=== PATIENT | male | born 1985 | race Caucasian/White ===

== ENCOUNTER 2025-04-27 17:34 | Emergency (ER) | payer BC, SELFPAY ==
--- OUTSIDE RECORDS SUMMARY | 2025-04-27 17:36 | XMS_ITS | Encounter Summary ---
Author Organization [facility] Address [address] [place] [address]. [place] [address] Care Team Providers Care Furrier Apprentice Name Role Phone Jamari Lamb MD Primary Care Provider [phone] Michelet Lozano MD Unavailable [phone] Javed Bernal MD Unavailable [phone] Salazar Cisneros DO Unavailable [facility] Purvi Ramos RN Unavailable [phone] Jamari Lamb MD Unavailable Jamari Lamb MD Unavailable Jamari Lamb MD Unavailable Jamari Lamb MD Unavailable Reason for Visit * Reason Onset Date Comments Patient Request for Note/Letter 01/10/2010 Encounter Details Date Type Department Care Team (Late st Contact Info) Description 01/10/2010 [facility] [place] [address] [phone] Jamari Lamb MD [address] [place] [address] Patient Request for Note/Letter Social History Tobacco Use Types Packs/Day Years Used Date Smoking Tobacco: Never Alcohol Use Standard Drinks/Week Comments Not Asked 0 (1 standard drink = 0.6 oz pur e alcohol) Sex and Gender Information Value Date Recorded Sex Assigned at Male 09/16/2020 8:14 AM CDT Legal Sex Male 3:34 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 Gender Identity Male 09/16/2020 8:14 AM CDT Sexual Orientation Straight 09/16/2020 8: 14 AM CDT documented as of this encounter Plan of Treatment Not on file documented as of this encounter Visit Diagnoses Not on filedocumented in this encounter Care Teams Furrier Apprentice Relationship Specialty [place] [address] [place] [address] PCP - General Family Practice 08/14/10 [place] [address] [place] [address] PCP - Assigned PCP 07/12/11 07/26/18 Michelet Lozano MD [address] [address] Urology 02/24/16 Javed Bernal MD [address] [address] Urology 04/27/16 Salazar Cisneros DO [address] [address] Urology 04/27/16 06/15/17 Purvi Nur, SID Clinic Process Eng Urology 04/27/1609/06 [place] [address] [place] [address] Referring Physician Family Practice 04/27/16 [place] [address] [place] [address] Assigned PCP 02/25/12 08/06/18 [place] [address] [place] [address] Assigned PCP 03/19/19 12/13/23 documented as of this encounter
--- OUTSIDE RECORDS SUMMARY | 2025-04-27 17:36 | XMS_ITS | Encounter Summary ---
Author Organization [facility] Address [address] [place] [address]. [place] [address] Care Team Providers Care Web Press Operator Assistant Name Role Phone Jamari Lamb MD Primary Care Provider Michelet Lozano MD Unavailable [phone] Javed Bernal MD Unavailable [phone] Purvi Nur RN Unavailable Jamari Lamb MD Unavailable Jamari Lamb MD Unavailable Reason for Visit * Reason Comments Medication Refill Encounter Details Date Type Department Care Team (Late st Contact Info) Description 09/04/[address] [address] Jamari Lamb MD [address] [place] [address] Medication Refill Social History Tobacco Use Types Packs/Day Years Used Date Smoking Tobacco: Never Smokeless Tobacco: Never Alcohol Use Standard Drinks/Week Comments Yes 0 (1 standard drink = 0.6 oz pur e alcohol) socially PHQ-2 Answer Date Recorded PHQ-2 Score 4 03/13/2019 Sex and Gender Information Value Date Recorded Sex Assigned at Male 09/16/2020 8:14 AM CDT 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 Rachel Riley MA * Telephone Encounter - Shantal Gr MA - 09/11/2019 9:18 AM CDT Left message for patient to call clinic back regarding Dr. Lamb's message. Shantal Gr CMA * Telephone Encounter - Jamari Lamb MD - 09/11/2019 6:49 AM CDT Video visit please. Jamari Lamb MD [facility] [phone] * Telephone Encounter - Aline Sepulveda RN - 09/04/2019 3:56 PM CDT Routing refill request to provider to review approval because: SEE LAST VISIT, NO FOLLOW UP DONE, ADVISE TYPE OF F/U APPOINTMENT NEEDED, ROUTE FOR PROCESSING Aline Sepulveda RN, BSN Message handled by Nurse Triage. documented in this encounter Plan of Treatment Not on file documented as of this encounter Visit Diagnoses Diagnosis Current moderate episode of major depressive disorder without prior episode (H) documented in this encounter Additional Health Concerns Assessment Noted Time PHQ-9 Depression Total Score: 10 019 7:03 AM CDT documented as of this encounter Care Teams Web Press Operator Assistant Relationship Specialty [place] [address] [place] [address] PCP - General Family Practice 08/14/10 Michelet Lozano MD [address] [facility] [address] [place] [address] Urology 02/24/16 Javed Bernal MD 420 [facility] [address] [place], [place] [address] Urology 04/27/16 Purvi Nur, RN Clinic Fire Pot Operator Urology 04/27/1609/06 [place] [address] [place] [address] Referring Physician Family Practice 04/27/16 [place] [address] [place] [address] Assigned PCP 03/19/19 12/13/23 documented as of this encounter
--- OUTSIDE RECORDS SUMMARY | 2025-04-27 17:36 | XMS_ITS | Encounter Summary ---
Author Organization [facility] Address [address] [place] [address]. [place] [address] Care Team Providers Care Tobacco Sizer Name Role Phone Jamari Lamb MD Primary Care Provider Michelet Lozano MD Unavailable Javed Bernal MD Unavailable [phone] Salazar Cisneros DO Unavailable [facility] Purvi Ramos RN Unavailable Jamari Lamb MD Unavailable Jamari Lamb MD Unavailable Jamari Lamb MD Unavailable Jamari Lamb MD Unavailable Encounter Details Date Type Department Care Team (Late st Contact Info) Description 11/03/2012 [facility] Medical Advice [address] [address] [place] [address] [place] [address] Social History Tobacco Use Types Packs/Day Years Used Date Smoking Tobacco: Never Smokeless Tobacco: Never Alcohol Use Standard Drinks/Week Comments Yes 0 (1 standard drink = 0.6 oz pur e alcohol) socially Sex and Gender Information Value Date Recorded Sex Assigned at Male 09/16/2020 8:14 AM CDT 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 Sex 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 Gender Identity Male 09/16/2020 8:14 AM CDT Sexual Orientation Straight 09/16/2020 8: 14 AM CDT 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 Not on file Not on file Not on file Not on file Not on file documented as of this encounter Plan of Treatment Not on file documented as of this encounter Visit Diagnoses Not on filedocumented in this encounter Care Teams Tobacco Sizer Relationship Specialty [place] [address] [place] [address] PCP - General Family Practice 08/14/10 [place] [address] [place] [address] PCP - Assigned PCP 07/12/11 07/26/18 Michelet Lozano MD 420 [facility] [address] [place] [address] Urology 02/24/16 Javed Bernal MD [address] [place] [address] [facility] [address] [place] [address] Urology 04/27/16 Salazar Cisneros DO [address] [address] Urology 04/27/16 06/15/17 Purvi Nur, SID Clinic Cane Piler Urology 04/27/1609/06 [place] [address] [place] [address] Referring Physician Family Practice 04/27/16 [place] [address] [place] [address] Assigned PCP 02/25/12 08/06/18 [place] [address] [place] [address] Assigned PCP 03/19/19 12/13/23 documented as of this encounter
--- OUTSIDE RECORDS SUMMARY | 2025-04-27 17:36 | XMS_ITS | Encounter Summary ---
Author Organization [facility] Address [address] [place] [address] Care Team Providers Care Material Engineer Name Role Phone Jamari Lamb MD Primary Care Provider [phone] Michelet Lozano MD Unavailable [phone] Javed Bernal MD Unavailable [phone] Jamari Lamb MD Unavailable Jamari Lamb MD Unavailable Encounter Details Date Type Department Care Team (Late st Contact Info) Description 04/10/2022 [facility] [place] Medical Advice [address] [address] Barbi Welch, GREGORIO Social History Tobacco Use Types Packs/Day Years Used Date Smoking Tobacco: Never Smokeless Tobacco: Never Alcohol Use Standard Drinks/Week Comments Yes 0 (1 standard drink = 0.6 oz pur e alcohol) socially PHQ-2 Answer Date Recorded PHQ-2 Score 1 11/14/2020 Sex and Gender Information Value Date Recorded Sex Assigned at Male 09/16/2020 8:14 AM CDT 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 Gender Identity Male 09/16/2020 8:14 AM CDT Sexual Orientation Straight 09/16/2020 8: 14 AM CDT 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 Not on file Not on file Not on file Not on file Not on file documented as of this encounter Plan of Treatment Not on file documented as of this encounter Visit Diagnoses Not on filedocumented in this encounter Additional Health Concerns Assessment Noted Time PHQ-9 Depression Total Score: 3 11/15/19 21 8:34 AM CDT documented as of this encounter Care Teams Material Engineer Relationship Specialty [place] [address] [place] [address] PCP - General Family Practice 08/14/10 Michelet Lozano MD [address] [address] Urology 02/24/16 Javed Bernal MD [address] [address] Urology 04/27/16 [place] [address] [place] [address] Referring Physician Family Practice 04/27/16 [place] [address] [place] [address] Assigned PCP 03/19/19 12/13/23 documented as of this encounter
--- OUTSIDE RECORDS SUMMARY | 2025-04-27 17:36 | XMS_ITS | Clinical Summary ---
Author Organization [facility] Address [address] [place] [address] Care Team Providers Care Concrete Pouring Supervisor Name Role Phone Jamari Lamb MD Primary Care Provider [phone] Michelet Lozano MD Unavailable [phone] Javed Bernal MD Unavailable [phone] Jamari Lamb MD Unavailable Allergies Active Allergy Reactions Criticality Noted Date Comments Amoxicillin Swelling 10/12/2012 Iodine Anaphylaxis High 05/13/2016 Shellfish also Penicillins Hives 10/24/2009 swelling Seasonal Allergies 11/14/2020 Shellfish Protein-Containing Drug Products Anaphylaxis,Difficulty breathing,Hives,Itchin g,Nausea and Vomiting,Rash,Shortnes s Of Breath,Swelling High 02/04/2015 Sulfa Antibiotics Nausea and Vomiting,Rash Low 10/12/2012 Medications sertraline (ZOLOFT) 50 MG tabletIndication s:Current moderate episode of major depressive disorder without prior episode (H) TAKE 1 TABLET BY MOUTH EVERY DAY 60 tablet 02/02/2022 Active Active Problems Problem Noted Date Diagnosed Date 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 09/15/2019 Decreased urine stream 03/17/201609/14 Immunizations Immunization Administration Dates Next Due COVID-19 MONOVALENT 12+ (Pfizer) 10/04/2020 Influenza Vaccine, 6+MO IM ( QUADRIVALENT W/PRESERVATIVES) 03/11/2018 TDAP (Adacel,Boostrix) 02/23/2011 TDAP Vaccine (Adacel) 02/23/2011,01/09/2010 Td (Adult), Adsorbed 01/08/1998 Family History Medical History Relation Comments Cancer Maternal Grandfather skin cancer Cerebrovascular Disease Maternal Grandfather Relation Status Comments Father Alive Maternal Grandfather Maternal Grandmother Mother Alive Paternal Grandfather Paternal Grandmother Alive Sister Alive x1 Social History Tobacco Use Types Packs/Day Years Used Date Smoking Tobacco: Never Smokeless Tobacco: Never Alcohol Use Standard Drinks/Week Comments Yes 0 (1 standard drink = 0.6 oz pur e alcohol) socially PHQ-2 Answer Date Recorded PHQ-2 Score 1 11/14/2020 Adolescent Education Answer Date Record ed Getting School Help Needed Not on file 02/27 Sex and Gender Information Value Date Recorded Sex Assigned at Male 09/16/2020 8:14 AM CDT Legal Sex Male 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 Gender Identity Male 09/16/2020 8:14 AM CDT Sexual Orientation Straight 09/16/2020 8: 14 AM CDT 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 Not on file Not on file Not on file Not on file Not on file Last Filed Vital Signs Vital Sign Reading Time Taken Comments Blood Pressure 121/63 05/22/2019 4:00 PM SPECIAL EDUCATION TEACHER Pulse 79 05/22/2019 4:00 PM SPECIAL EDUCATION TEACHER Temperature 36.9 C (98.5 F) 05/22/2019 1:28 PM SPECIAL EDUCATION TEACHER Respiratory Rate 16 05/22/2019 1:28 PM SPECIAL EDUCATION TEACHER Oxygen Saturation 99% 05/22/2019 4:00 PM SPECIAL EDUCATION TEACHER Inhaled Oxygen Concentration - - Weight 86.2 kg (190 lb) 11/14/2020 9:15 AM CDT Height 182.9 cm (6') 11/14/2020 9:15 AM CDT Body Mass Index 25.77 11/14/2020 9:15 AM CDT Plan of Treatment Not on file Insurance [facility] [employer] [facility] [facility] [facility] [employer] Member Subscriber Plan / Payer (Ef fective 2017-Present) Name:Julian Larsen Member ID:[id number] Relation to Subscriber:Self Name:Julian Larsen Subscriber ID:[id number] Payer ID:[id number] Group ID:Not on file Type:Indemnity Address: [address] [id number] [place] [address] Advance Directives For more information, please contact: [phone] * Full Code (Latest Code Status on File) Date Activated Date Inactivated Comments 05/14/2016 9:41 PM 05/15/2016 1:08 PM Care Teams Concrete Pouring Supervisor Relationship Specialty [place] [address] [place] [address] PCP - General Family Practice 08/14/10 Michelet Lozano MD [address] [address] Urology 02/24/16 Javed Bernal MD [address] [address] Urology 04/27/16 [place] [address] [place] [address] Referring Physician Family Practice 04/27/16
--- OUTSIDE RECORDS SUMMARY | 2025-04-27 17:36 | XMS_ITS | Encounter Summary ---
Author Organization [facility] Address [address] [place], [place] [address]. [place] [address] Care Team Providers Care Medical Record Administrator Name Role Phone Jamari Lamb MD Primary Care Provider Michelet Lozano MD Unavailable [phone] Javed Bernal MD Unavailable Salazar Cisneros DO Unavailable Unavailabl Purvi Ramos RN Unavailable Jamari Lamb MD Unavailable Jamari Lamb MD Unavailable Jamari Lamb MD Unavailable Jamari Lamb MD Unavailable Encounter Details Date Type Department Care Team (Late st Contact Info) Description 06/14/2013 Office Visit-[facility] [address] [place] [address] Lili York MD [facility] [address] [place], [place] [id number] Social History Tobacco Use Types Packs/Day Years Used Date Smoking Tobacco: Never Smokeless Tobacco: Never Alcohol Use Standard Drinks/Week Comments Yes 0 (1 standard drink = 0.6 oz pur e alcohol) socially Sex and Gender Information Value Date Recorded Sex Assigned at Male 09/16/2020 8:14 AM CDT 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 Please see my previous note for details. Briefly the patient had an episode of what was diagnosed as a panic attack September of 2012. Please see my previous note for additional details. He in the interim has had work-up including TSH, basic chemistries, troponin elevations, 48-hour Holter monitor and an echocardiogram fairly unremarkable findings. Due to his symptoms we have started him on Toprol 25 mg daily. He noticed some slight improvement with this initially, however, he has had some breakthrough symptoms. He states that the Toprol works in the sense of lessening the severity of the symptoms as well as the intensity and frequency. However, he continues to be bothered by them and wishes to seek some additional measures if appropriate. 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 He presents for a routine follow-up visit. IMPRESSION: 1.Palpitations. 2.Normal echocardiogram. No evidence of structural heart disease. 3.Holter monitor 48-hours. No symptoms were noted. Patient had sinus tachycardia no significant arrhythmias were commented upon. RECOMMENDATIONS: 1.We have again gone over patient's symptoms which appear to have slightly improved with the Toprol, however, not completely resolved. His Holter monitor and echocardiogram were again reviewed as well as his previous lab work. We have gone over the fact that usually these episodes are somewhat self-limiting. However the patient would like to try pharmacologic therapy if appropriate. His Toprol wewill discontinue and start him on verapamil 120 mg to be taken at night. Hopefully this is a short-term medication considering his age and we will be able to discontinue this at some point. He is willing to try medical therapy initially and have close follow-up with reassessment. We will have him follow-up within one month to see how he is doing and adjust his medical care as appropriate. It was a pleasure seeing him on your behalf. Lili York M.D./[facility]-s/[id number] documented in this encounter Plan of Treatment Not on file documented as of this encounter Visit Diagnoses Not on filedocumented in this encounter Care Teams Medical Record Administrator Relationship Specialty [place] [address] [place] [address] PCP - General Family Practice 08/14/10 [place] [address] [place] [address] PCP - Assigned PCP 07/12/11 07/26/18 Michelet Lozano MD [address] [address] Urology 02/24/16 Javed Bernal MD [address] [address] Urology 04/27/16 Salazar Cisneros DO [address] [address] Urology 04/27/16 06/15/17 Purvi Nur RN Clinic [facility] [place] Urology 04/27/1609/06 [place] [address] [place] [address] Referring Physician Family Practice 04/27/16 [place] [address] [place] [address] Assigned PCP 02/25/12 08/06/18 [place] [address] [place] [address] Assigned PCP 03/19/19 12/13/23 documented as of this encounter
--- OUTSIDE RECORDS SUMMARY | 2025-04-27 17:36 | XMS_ITS | Encounter Summary ---
Author Organization [place] Address [address] [place], [place] [address]. [place] [address] Care Team Providers Care Algebraist Name Role Phone Marie Lamb MD Primary Care Provider Michelet Lozano MD Unavailable Javed Bernal MD Unavailable Salazar Cisneros DO Unavailable Unavailabl Purvi Ramos RN Unavailable Marie Lamb MD Unavailable Marie Lamb MD Unavailable Marie Lamb MD Unavailable Marie Lamb MD Unavailable Encounter Details Date Type Department Care Team (Late st Contact Info) Description 03/29/2013 Office Visit-[facility] [address] [place] [address] Lili York MD [facility] [address] [place], [place] [address] Social History Tobacco Use Types Packs/Day Years Used Date Smoking Tobacco: Never Smokeless Tobacco: Never Alcohol Use Standard Drinks/Week Comments Yes 0 (1 standard drink = 0.6 oz pur e alcohol) socially Sex and Gender Information Value Date Recorded Sex Assigned at Male 09/16/2020 8:14 AM CDT 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 Palpitations, 785.1 ALLERGIES amoxicillin trihydrate, Swelling/hives/rash penicillin G potassium, Swelling/rash/hives seafood Sulfasalazine, Rash/hives MEDICATIONS (prior to changes made today) \X06\\X06\\X06\ CHIEF COMPLAINTS palpitations HISTORY OF PRESENT ILLNESS The patient is a 27-year-old male with no prior cardiac history who had done well up until September of this past year. At that time the patient states that he had admission for panic attack. At that time he presented while at work with symptoms of chest tightness, racing heart, a flushing sensation and symptoms of light-headedness. Due to his appearance his boss recommended that he proceed to the emergency room where he was evaluated. The patient states that his heart rate was quite fast on presentation although he is not quite sure how fast it was and after a period of time in the emergency room his heart rate normalized. Blood work was drawn at the time. Troponin per patient was within normal limits. TSH was drawn and it was also within normal limits as well as a chemistry panel. He was diagnosed with presumed panic attacks, was given Ativan PRN to use and unfortunately he continues to have symptoms. He states that he will take Ativan periodically on the onset of symptoms and will not notice any changes with his symptomology. He states that he has several episodes per week. He has had some recent stressors. He states that he recently got and he moved into a new house and has some external and work related stressors as well, however, he does not feel that they are contributing to his symptomology. He is accompanied by his who confirms these findings. He states that hehad a recent episode this past Wednesday which prompted this clinic visit. He reports of no PND, orthopnea, syncope. He does not take any herbal medications. He otherwise is very healthy and has no chronic medical issues. He states that prior to five months ago he never had any of these symptoms. He has had a work-up including a 48-hour Holter monitor demonstrating the majority sinus rhythm, there were periods of sinus tachycardia, no significant arrhythmias were noted, isolated PACs were commented upon. He has a baseline EKG which was performed March 22, 2013 demonstrating normal sinus rhythm, QRS complexes are within normal limits and he also had an echocardiogram which again was within normal limits. LV systolic function was normal and no significant valvular abnormalities were commented upon. He subsequently presents to establish care and see if other remedies would be appropriate. 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 EYES denies diplopia, history of glaucoma or visual field defects. EARS, NOSE, THROAT, MOUTH denies any hearing loss, epistaxis, hoarseness or difficulty speaking. RESPIRATORY dyspnea at rest CARDIOVASCULAR sudden rushing feeling to extremities, almost blacked out, lightheaded, sore neck afterwards-tighter, racing heart, heart has been really achy afterwards ABDOMINAL tried to use pepto and omeprazole and it never helped MUSCULOSKELETAL sees chiropractor for back and neck issues NEUROLOGICAL headaches, not normal for him PSYCHIATRIC anxiety, stress, depression ENDOCRINE denies any history of thyroid disease or diabetes mellitus. HEMATOLOGICAL/IMMUNOLOGIC medication allergies, seasonal allergies, seafood, uses RX flonase in spring PHYSICAL EXAMINATION VITAL SIGNS: Blood Pressure: 114/64Sitting, Right arm, regular cuff Pulse- 80.00/min. Weight- 185.60 lbs. Height- 70. BMI Measurement: 26 CONSTITUTIONAL cooperative, alert and oriented,well developed, well nourished, in no acute distress. SKIN warm and dry to touch, no apparent skin lesions, or masses noted. HEAD normocephalic, atraumatic EYES Pupils equal and round, conjunctivae and lids unremarkable, sclera white, no xanthalasma ENT no pallor or cyanosis, dentition good NECK carotid pulses are full and equal bilaterally, JVP normal, no carotid bruit, no thyromegaly CHEST normal symmetry, no tenderness to palpation, normal respiratory excursion, no intercostal retraction, no use of accessory muscles, clear to auscultation and percussion. CARDIAC regular rhythm, S1 normal, S2 normal, No S3 or S4, Apical impulse not displaced, no murmurs, gallops or rubs detected. ABDOMEN abdomen soft, bowel sounds normoactive, no masses, no hepatosplenomegaly, non- tender, no bruits PERIPHERAL PULSES pulses full and equal in all extremities, no bruits auscultated. EXTREMITIES & BACK no deformities, clubbing, cyanosis, erythema or edema observed. There are no spinal abnormalities noted. Normal muscle strength and tone. NEUROLOGICAL no gross motor deficits noted, affect appropriate, oriented to time, person and place. MEDICATIONS UPDATED/STARTED TODAY: No Medications n/a, #0 (Zero) Toprol XL 25 mg tablet extended release 24 hr, 1 p.o. daily, #30 (Thirty) IMPRESSIONS/PLAN ASSESSMENT: 1.Palpitations. 2.Normal echocardiogram no evidence of structural heart disease. 3.Holter monitors 48 hours. Patient did not have any symptoms during the period of monitoring. He did have some sinus tachycardia maximum heart rate of 157 beats per minute. No significant arrhythmias were commented upon. RECOMMENDATIONS: We have gone over patients symptoms quite carefully. We have provided him with some reassurance and gone over various strategies to help mitigate any further episodes. He does not have any structural heart disease. His Holter monitor did show some sinus tachycardia. He states that he is having his symptoms quite frequently and would like to see if there is any pharmacologic therapy. Initially I was quite hesitant to start a medication due to his young age, however, the patient would like a trial of medical therapy. We will start off with Toprol XL 25 mg one tablet daily and have a close follow-up in six weeks to see if this resolves his symptoms. My goal is to use this as a short-term medication considering his age and hopefully that will be the case. It was a pleasure seeing him on your behalf. We look forward to following up with him in the near future. TODAYS ORDERS 1. Return Visit 6 weeks Lili York MD documented in this encounter Plan of Treatment Not on file documented as of this encounter Visit Diagnoses Not on filedocumented in this encounter Care Teams Algebraist Relationship Specialty [place] [address] [place] [address] PCP - General Family Practice 08/14/10 [place] [address] [place] [address] PCP - Assigned PCP 07/12/11 07/26/18 Michelet Lozano MD [address] [address] Urology 02/24/16 Javed Bernal MD [address] [address] Urology 04/27/16 Salazar Cisneros DO [address] [address] Urology 04/27/16 06/15/17 Purvi Nur, [facility] 04/27/1609/06 [place] [address] [place] [address] Referring Physician Family Practice 04/27/16 [place] [address] [place] [address] Assigned PCP 02/25/12 08/06/18 [place] [address] [place] [address] Assigned PCP 03/19/19 12/13/23 documented as of this encounter
--- OUTSIDE RECORDS SUMMARY | 2025-04-27 17:36 | XMS_ITS | Clinical Summary ---
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 [employer] Allergies Active Allergy Reactions Criticality Noted Date Comments Iodine Anaphylaxis High 05/13/2016 Shellfish also Penicillins Hives,Swelling High 10/24/2009 swelling Shellfish Protein-Containing Drug Products Anaphylaxis,Respirator y Distress,Hives,Itching ,Nausea And Vomiting,Rash,Swelling High 02/04/2015 Sulfa Antibiotics Nausea And Vomiting,Rash Low 10/12/2012 Medications No known medications Active Problems Problem Noted Date Diagnosed Date Panic attack 10/12/2012 Chronic rhinitis 10/24/2009 Resolved Problems Problem Noted Date Diagnosed Date Resolved Date Sinus tachycardia 04/08/2013 06/12/2024 Social History Tobacco Use Types Packs/Day Years Used Date Smoking Tobacco: Never Assessed Sex and Gender Information Value Date Recorded Sex Assigned at Not on file 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 Gender Identity Not on file Sexual Orientation Not on file Last Filed Vital Signs Vital Sign Reading Time Taken Comments Blood Pressure 123/71 06/11/2024 12:36 PM HUSKER OPERATOR Pulse 81 06/11/2024 12:36 PM HUSKER OPERATOR Temperature 37.4 C (99.4 F) 06/11/2024 12:36 PM HUSKER OPERATOR Respiratory Rate 18 06/11/2024 12:36 PM HUSKER OPERATOR Oxygen Saturation 98% 06/11/2024 12:36 PM HUSKER OPERATOR Inhaled Oxygen Concentration - - Weight - - Height - - Body Mass Index - - Plan of Treatment Health Maintenance Due Date Last Done Comments Hep C Screening (Preventive Services) 1985 HIV Screening (Preventive Services) 2001 Adult Preventive Visit 09/24/2003 HepB Vaccine (1) 2004 HPV Vaccine (1 - 3-dose SCDM series) 2012 Cholesterol 2020 DTaP/Tdap/Td Vaccine (3 - Tdap) 02/23/2021 02/23/2011, 01/09/2010 COVID-19 Vaccine (3 - 2024-2 6 season) 2025 06/11/2021, 10/04/2020 Influenza Vaccine (#1) 2025 03/11/2018 Zoster/Shingles Vaccine (1 o f 2) 09/24/2035 HepA Vaccine Aged Out No longer eligi ble based on patient's age to complete this topic Hib Vaccine Aged Out No longer eligi ble based on patient's age to complete this topic IPV (Polio) Vaccine Aged Out No longe r eligible based on patient's age to complete this topic MCV4 Vaccine Aged Out No longer eligi ble based on patient's age to complete this topic Meningococcal B Vaccine Aged Out No l onger eligible based on patient's age to complete this topic Pneumococcal Vaccine Aged Out No long er eligible based on patient's age to complete this topic Insurance [facility]
[2025-04-27 17:38] VITALS: BP 120/80; PULSE 78; RESP 16; TEMP 36.6; O2SAT 98; BMI 26.3
--- NOTE | 2025-04-27 18:24 | CRLHL7_ITS ---
For Patients: As a result of the Century Cures Act, medical imaging exams and procedure reports are released immediately into your electronic medical record. You may view this report before your referring provider. If you have questions, please contact your health care provider. INDICATION: Fall, elbow injury olecranon TECHNIQUE: Elbow radiograph 3 views left COMPARISON: None FINDINGS: Bone: No acute fractures or aggressive bone lesions are identified. Joint: The elbow joint is unremarkable. No significant displacement of the anterior or posterior fat pads noted to suggest an effusion but the lateral view is limited by rotation. Soft tissue: Unremarkable. No radiopaque foreign bodies are seen. IMPRESSION: 1. No acute osseous injuries are noted. Dictated by: Stevan Cannon MD @ 04/27/2025 18:50:19 (Electronically Signed)
--- NOTE | 2025-04-27 18:27 | ED_ITS ---
HPI - General Adult General Chief complaint: Extremity Pain/Injury, Upper Stated complaint: Bust left elbow/ sent from clinic Time Seen by Provider: 04/27/25 18:16 Source: patient Mode of arrival: ambulatory Limitations: no limitations History of Present Illness HPI narrative: 39-year-old male with no chronic medical issues presents to the emergency department for evaluation of injury to left elbow. Patient was trying to carry his daughter in from the car, slipped on a patch of ice and fell onto his flexed left elbow, striking the olecranon. No injuries to the child, no injuries to any other areas happened about 1 hour prior to arrival, 90 minutes prior to exam. No head injury, not anticoagulated. Try to go to urgent care but they referred him here due to concerns that the laceration on the elbow was quite deep. He has no movement deficits in the hand, no pain in the wrist or shoulder. He does have pain with flexing and full extension of the elbow. Opposite arm is unaffected. No chest pain, hip pain, neurological changes or other areas of injury today. Has not taken any medication to help with symptoms. Reports benign past medical history. Allergies to sulfa shellfish penicillin iodine amoxicillin reviewed. No long-term medications, nonsmoker. ROS is notable for no other neurological, skin, musculoskeletal changes. Related Data Home Medications ?Medication ?Instructions ?Recorded ?Confirmed No Known Home Medications 04/27/2510/15 Allergies Allergy/AdvReac Type Severity Reaction Status Date / Time amoxicillin Allergy Severe Hives Verified 04/27/25 17:46 iodine Allergy Severe Anaphylaxis Verified 04/27/25 17:46 Penicillins Allergy Severe Hives Verified 04/27/25 17:46 shellfish derived Allergy Severe Anaphylaxis Verified 04/27/25 17:46 Sulfa (Sulfonamide Allergy Severe Hives Verified 04/27/25 17:46 Antibiotics) [facility] Medical History Depression with anxiety ?F41.8 - Other specified anxiety disorders (ICD-10) Numerous skin moles ?D22.9 - Melanocytic nevi, unspecified (ICD-10) Family history of liver cancer ?Z80.0 - Family history of malignant neoplasm of digestive organs (ICD-10) Social History Narrative: 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 Never smoke Exam Const: Vital Signs, click to edit/add: Vital Signs - 24 hr 04/27/25 17:38 Temperature 97.9 F Pulse Rate [Right Pulse Oximeter] 78 Respiratory Rate 16 Blood Pressure [Ri ght Upper Arm] 120/80 Pulse Oximetry 98 Oxygen Delivery Me thod Room Air Documenting provider has reviewed patient's vital signs: yes Common normals: no apparent distress General appearance: cooperative and well kempt HENMT: Common normals: normocephalic Head and scalp: normocephalic Face and sinus: normal facial exam Eye: Common normals: conjunctivae normal General eye: normal appearance of both eyes Conjunctiva: conjunctiva(e) normal Neck & C-Spine: General: normal visual inspection Resp: Common normals: normal respiratory effort Effort & inspection: able to speak in complete sentences Cardio: Common normals: regular rate and regular rhythm Rate: regular rate Rhythm: regular rhythm Other: Regular rate and rhythm palpated through left radial pulse. Normal capillary refill of all fingers in left side Extremity: Other: Left shoulder with normal range of motion. Left elbow shows a 1.5 cm laceration right over the olecranon. It is through the dermis, epidermis and into the connective tissue. I do not think that it is bone that I am seeing but rather just joint capsule. I do not see any fluid or blood leaking. He has normal supination and pronation at the elbow but does have about 10? deficit in both full extension and full flexion due to tenderness. Wrist and fingers have normal range of motion on left side. Right side appears grossly normal and he moves it freely though it is not specifically examined. Psych: Appearance: well kempt Attitude: engaged Activity/motor behavior: appropriate eye contact Insight: insight good Judgement: judgment good Skin: Narrative: Other than the 1.5 cm horizontal laceration across the olecranon, no areas of other injury appreciated on body Course Course ED Course: 39-year-old male with injury and laceration to left elbow. Concern for potential underlying fracture verses open fracture due to laceration. Will need closure all laceration once we determine if there is underlying fracture. He declines pain medicine for now. Will obtain x-ray. Reevaluation(s) Reevaluation #1: Update: X-ray reassuring. No sign of foreign body, no signs of fracture, effusion, since sign etc.. Counseled patient on these findings. Procedure: Laceration repair. Area is cleansed with chlorhexidine, injected with 3 mL of 1% lidocaine without epinephrine. Area was then re-cleansed with chlorhexidine, ex lowered with good visualization of the depth of the wound. There really are no signs of bone, just the joint capsule or more likely the triceps tendon. Tendon does not appear to be ruptured. Sutured with 3 4-0 Monocryl simple interrupted sutures with good anatomic alignment and hemostasis. Underlying tissue because it was so thin was not closed. Patient tolerated this well. We discussed that he is at the slightly higher risk of infection and I cannot exclude the infection went down to the joint capsule. Because of this we elected to treat with Keflex 1 pill 3 times daily for 7 days. Prescribed from [facility]. Counseled on Tylenol and ibuprofen as needed for pain. Apply antibiotic ointment inter Vaseline at least once daily, covering with Band-Aid. Stitches should be removed in 7 days. 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 This is reasonable, sent home with appropriate tools. If they have difficulty or concerns, please have them done in the clinic instead. Alarm symptoms reviewed that would warrant re- evaluation. Does seem to have good range of motion following repair. Vital Signs Vital signs: Initial Vital Signs Temperature 97.9 F 04/27/25 17:38 Temperature Source Temporal Artery Scan 04/27/25 17:38 Pulse Rate 78 04/27/25 17:38 Respiratory Rate 16 04/27/25 17:38 Blood Pressure 120/80 04/27/25 17:38 Blood Pressure Mean 93 04/27/25 17:38 Blood Pressure Position Sitting 04/27/25 17:38 Pulse Oximetry 98 04/27/25 17:38 Oxygen Delivery Method Room Air 04/27/25 17:38 Vital Signs Temperature 97.9 F 04/27/25 17:38 Pulse Rate 78 04/27/25 17:38 Respiratory Rate 16 04/27/25 17:38 Blood Pressure 120/80 04/27/25 17:38 Pulse Oximetry 98 04/27/25 17:38 Oxygen Delivery Method Room Air 04/27/25 17:38 Temperature 97.9 F 04/27/25 17:38 Pulse Rate 78 04/27/25 17:38 Respiratory Rate 16 04/27/25 17:38 Blood Pressure 120/80 04/27/25 17:38 Pulse Oximetry 98 04/27/25 17:38 Oxygen Delivery Method Room Air 04/27/25 17:38 Medications Administered Medications: Discontinued Medications Generic Name Dose Route Start Last Admin Trade Name Sena PRN Reason Stop Dose Admin Lidocaine HCl 3 ml 04/27/25 18:51 04/27/25 19:00 Lidocaine 1% 5 Ml (Pf) 5 Ml Vial SUBD 04/27/25 18:52 3 ml ONCE ONE Administration Tetanus/Diphtheria Toxoids Adsorbed 0.5 ml 04/27/25 19:17 04/27/25 19:25 Tetanus-Diphtheria Toxoids/Pf 0.5 Ml Syringe IM 04/27/25 19:18 0.5 ml .ONCE ONE Administration Medical Decision Making Imaging Data Left elbow x-ray: Attestation: I have reviewed the pertinent imaging results. My impression: No sail sign, no signs of fracture or effusion. Normal x-ray Radiologist's impression: IMPRESSION: 1. No acute osseous injuries are noted. Dictated by: Stevan Cannon MD @ 04/27/2025 18:50:19 (Electronic Signature) Discharge Plan Discharge Clinical Impression: Elbow laceration Patient Disposition: Home w/ Parent or Adult Condition: Improved Instructions: Laceration (DC) Additional Instructions: As we discussed, there are no signs of fracture on the x-ray, this is good news. I do think that the cut did go all the way down to the joint capsule but I do not think that it is into the joint. As a precaution, I do recommend antibiotics just in case. He will take Keflex 1 pill 3 times daily for the next 7 days. The stitches should be removed in 7 days. You have indicated that a nurse will remove them for you, this is certainly reasonable that if you do prefer to have them removed in an office setting, please call for an appointment. Infection is unlikely but if you are noticing increased redness drainage or other signs of unusual reaction, please have this investigated in the clinic. Your tetanus shot was updated today and will be good for 10 years. It is okay to use Tylenol and/or ibuprofen as needed for discomfort. Try to leave the current dressing on overnight, but you may remove it to shower tomorrow. Reapply antibiotic ointment or plain Vaseline and a large Band-Aid daily. Try not to move or flex the elbow a lot for the 1st 24 hours but then, no restrictions. Activity Level: Activity as Tolerated Discharge Diet: Regular Prescriptions: No Action No Known Home Medications Follow Up/Referrals: Marcus Graham MD [Primary Care Provider, Family Practice] Stand Alone Forms: [facility] Info Instructions
[2025-04-27] MEDS: LIDOCAINE 1% 5 ml (pf) 5 ML VIAL 3 ML SUBD (19:00)
[2025-04-27] MEDS: TETANUS-DIPHTHERIA TOXOIDS/PF 0.5 ML SYRINGE IM (19:25)
== END 2025-04-27 19:35 | disposition home or self-care (01) ==
PROVIDERS: Emergency Provider Family Medicine; PCP Family Medicine
DX: S51.012A Laceration without foreign body of left elbow, initial encounter (principal); W00.0XXA Fall on same level due to ice and snow, initial encounter; Z23 Encounter for immunization
CPT/HCPCS: 12001; 73080; 90471; 90714; 99283; 99284